=== PATIENT | male | born 1950 | race Caucasian/White ===

== ENCOUNTER 2016-10-23 23:42 | Observation (INO) | payer BC ==
[2016-10-24] MEDS ORDERED: niCARdipine HCL 2.5 MG/ML AMP IVPB ONE (00:07)
[2016-10-24] MEDS ORDERED: SODIUM CHLORIDE 0.9% 1000ML 1,000 ML ONE (00:11)
[2016-10-24] MEDS ORDERED: SODIUM CHLORIDE 0.9% (FLUSH) 10 ML SYG IV PRN ×2 (00:11→01:28)
[2016-10-24] MEDS ORDERED: SODIUM CHLORIDE 0.9% 1000ML 1,000 ML IVS PRN (00:12)
[2016-10-24] MEDS ORDERED: diltiaZEM HCL CD 180 MG CAP PO ONE (00:36)
--- NOTE | 2016-10-24 00:45 | ED.PDOC ---
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 He started having an irregular , rapid pulse about an hour [employer]. The pulse went back to normal for about 15 minutes, but then returned to being rapid and irregular, so he came in. He denies any chest pain, although he says it feels funny. He has a history of PVCs for which he took a beta indira, however he is no longer on it. He has had a very stressful week as his mother last week and he has had to travel back and forth to arrange for her , etc. Otherwise, he has been in his normal state of health. Timing/Duration: 1 hour Severity: moderate Improving Factors: nothing Worsening Factors: nothing Associated Symptoms: denies symptoms Allergies/Adverse Reactions: Allergies Aspirin Allergy (Unknown, Verified 10/24/16 00:06) Home Medications: Ambulatory Orders NK [NK] 10/24/16 Review of Systems - Review of Systems Constitutional: States: other - fatigue EENTM: States: nose congestion Respiratory: States: no symptoms reported Cardiology: States: palpitations Gastrointestinal/Abdominal: States: other - heartburn Genitourinary: States: no symptoms reported Musculoskeletal: States: no symptoms reported Skin: States: no symptoms reported Neurological: States: numbness - Left hand Endocrine: States: no symptoms reported Hematologic/Lymphatic: States: no symptoms reported All other Systems: Reviewed and Negative Past Medical History (General) - Patient Medical History Hx Diabetes: No - Vaccination History Hx Influenza Vaccination: Yes Immunizations Up to Date: Yes Family Medical History - Family History Mother Family History: Unknown Living Status: Physical Exam - Physical Exam General Appearance: Alert, No apparent distress Eye Exam: bilateral normal Ears, Nose, Throat: hearing grossly normal, normal ENT inspection Neck: full range of motion, normal inspection Respiratory: lungs clear, normal breath sounds, no respiratory distress, no accessory muscle use Cardiovascular/Chest: no murmur, irregularly irregular - rapid Peripheral Pulses: radial,right: 2+, radial,left: 2+ Gastrointestinal/Abdominal: normal bowel sounds, non tender, soft, no organomegaly, no pulsatile mass Extremity: normal range of motion, normal inspection, no pedal edema, no calf tenderness Neurologic: alert, normal mood/affect, oriented x 3 Skin Exam: normal color, warm/dry Progress - Progress Progress: 10/24/16 00:47 Patient responded very well to Cardizem 30 mg IV which is 0.25 mg/kg. His pulse reduced to below 100, although he was still in afib. Because he wanted to stay in [place] rather than be transferred somewhere, I called Dr. Aguilar and he gladly accepted Patient. 10/24/16 01:17 Patient has been given some oral diltiazem and Lovenox, and we will start some magnesium since his is at the lower end of normal. - Results/Orders Results/Orders: 10/23/16 10/24/16 10/24/16 23:59 00:26 00:42 Temperature 98.9 F Pulse Rate 148 H 94 H Pulse Rate [ 152 H 92 H monitor] Respiratory 16 16 Rate Blood Pressure 158/115 156/72 [Left Arm] O2 Sat by Pulse 99 97 97 Oximetry 10/24/16 00:49 Temperature Pulse Rate 82 Pulse Rate [ 80 monitor] Respiratory 16 Rate Blood Pressure 150/72 [Left Arm] O2 Sat by Pulse 97 Oximetry 10/24/16 00:00 THYROID STIMULATING HORMONE Stat THYROXINE (T4) Stat 10/24/16 00:11 IV Care:Saline Lock per Protoc QSHIFT Telemetry .ONCE Sodium Chloride 0.9% (Flush) [Saline Flush Syringe] 10 ml IV PRN PRN EKG Stat Pulse Ox Stat 10/24/16 00:12 Sodium Chloride 0.9% 1000ML [Ns 1000 ml] 1,000 ml IVS .KVO Pulse Oximetry Assessment DAILY 10/24/16 00:45 EKG STAT 10/24/16 01:11 Magnesium Sulfate Premix 2Gm 2 gm Premix Bag 1 bag IVPB ONCE Laboratory Results WBC 6.7 K/mm3 (4.8-10.8) 10/24/16 00:00 RBC 5.00 M/mm3 (4.70-6.10) 10/24/16 00:00 Hgb 16.1 gm/dL (14.0-18.0) 10/24/16 00:00 Hct 47.0 % (42.0-52.0) 10/24/16 00:00 MCV 94.0 fl (80.0-94.0) 10/24/16 00:00 MCH 32.2 pg (27.0-31.0) H 10/24/16 00:00 MCHC 34.3 g/dL (33.0-37.0) 10/24/16 00:00 RDW 13.4 % (11.5-14.5) 10/24/16 00:00 Plt Count 217 K/mm3 (130-400) 10/24/16 00:00 MPV 7.7 fl (7.40-10.4) 10/24/16 00:00 Absolute Neuts (auto) 2.50 K/uL (1.8-6.8) 10/24/16 00:00 Absolute Lymphs (auto) 3.20 K/uL (1.0-3.4) 10/24/16 00:00 Absolute Monos (auto) 0.70 K/uL (0.2-0.8) 10/24/16 00:00 Absolute Eos (auto) 0.40 K/uL (0.0-0.4) 10/24/16 00:00 Absolute Basos (auto) 0.00 K/uL (0.0-0.1) 10/24/16 00:00 Neutrophils % 36.7 % (42.0-78.0) L 10/24/16 00:00 Lymphocytes % 47.4 % (20.0-50.0) 10/24/16 00:00 Monocytes % 9.8 % (2.0-9.0) H 10/24/16 00:00 Eosinophils % 5.4 % (1.0-5.0) H 10/24/16 00:00 Basophils % 0.7 % (0.0-2.0) 10/24/16 00:00 PT 13.4 SECONDS (9.4-12.5) H 10/24/16 00:00 INR 1.190 10/24/16 00:00 PTT (SP) 36.5 SECONDS (25.1-36.5) 10/24/16 00:00 D-Dimer, Quantitative 271 ng/mL (0-230) H* 10/24/16 00:00 Sodium 138 mmol/L (135-145) 10/24/16 00:00 Potassium 3.5 mmol/L (3.6-5.0) L 10/24/16 00:00 Chloride 104 mmol/L (101-111) 10/24/16 00:00 Carbon Dioxide 25 mmol/L (21-31) 10/24/16 00:00 Anion Gap 12.5 (12-18) 10/24/16 00:00 BUN 12 mg/dL (7-18) 10/24/16 00:00 Creatinine 0.75 mg/dL (0.6-1.3) 10/24/16 00:00 BUN/Creatinine Ratio 16.0 (10-20) 10/24/16 00:00 Random Glucose 150 mg/dL (70-105) H 10/24/16 00:00 Serum Osmolality 278.3 mOsm/L (275-295) 10/24/16 00:00 Calcium 10.0 mg/dL (8.4-10.2) 10/24/16 00:00 Magnesium 2.0 mg/dL (1.8-2.5) 10/24/16 00:00 Creatine Kinase 261 IU/L (38-174) H* 10/24/16 00:00 CK-MB (CK-2) 5.4 ng/mL (0.0-4.4) H* 10/24/16 00:00 CK-MB (CK-2) % 2.07 % (0.0-3.5) 10/24/16 00:00 Troponin I < 0.02 ng/mL (0.01-0.05) 10/24/16 00:00 B-Natriuretic Peptide 121.0 pg/ml (0-100) H 10/24/16 00:00 Thyroxine (T4) 9.73 ug/dL (6.09-12.23) 10/24/16 00:00 - EKG/XRAY/CT EKG: Atrial, Fibrillation, RVR - 154 bpm, nonspecific ST T wave Chg Comments: NML axis, No comparison--Afib with RVR XRAY: chest Xray Comments: No acute process - Additional EKG/XRAY/Consults EKG #2: Atrial, Fibrillation - 99 bpm, no ST T wave changes, Changed from - EKG #1--rate controlled Comments: NML axis, PVC--Afib with PVC Departure - Departure Clinical Impression: Atrial fibrillation with rapid ventricular response Disposition: Admit Patient Condition: Fair Home Medications: Ambulatory Orders NK [NK] 10/24/16 Decision To Admit - Decistion To Admit Decision to Admit Reason: Medical Nature Decision to Admit Date: 10/24/16 Decision to Admit Time: 01:00
--- NOTE | 2016-10-24 00:53 | RAD ---
EXAM: Chest,1 View CLINICAL INDICATION: 66-year-old male with A. fib. TECHNIQUE: Single view, AP portable chest was obtained. COMPARISON: None. FINDINGS: Unremarkable cardiac and mediastinal silhouette. Heart size is normal. Lungs are clear without focal opacity, pneumothorax or pleural effusions. The visualized bones are within normal limits. IMPRESSION: No acute cardiopulmonary abnormalities. Electronically signed by: Nancy Tenorio MD 10/24/2016 12:52 AM ZONING ADMINISTRATOR
[2016-10-24] MEDS ORDERED: MAGNESIUM SULFATE PREMIX 2GM 2 GM in PREMIX BAG 1 BAG IVPB ONE (01:11)
[2016-10-24] MEDS ORDERED: ENOXAPARIN SODIUM 40 MG/0.4 ML SYG SUBCU ONE (01:13)
[2016-10-24] MEDS ORDERED: MAGNESIUM SULFATE PREMIX 2GM 50 ML IVPB ONE (01:17)
[2016-10-24] MEDS ORDERED: MAGNESIUM HYDROXIDE 30 ML UD PO PRN (01:28)
[2016-10-24] MEDS ORDERED: ACETAMINOPHEN 325 MG TAB PO PRN (01:28)
[2016-10-24] MEDS ORDERED: KCL 40MEQ/NS 1,000 ML IVS PRN (01:28)
[2016-10-24] MEDS ORDERED: IV SET AND CAP CHANGE INJ INJ SCH (01:30)
[2016-10-24] MEDS ORDERED: POTASSIUM CHLORIDE 10 MEQ TAB PO ONE (01:45)
[2016-10-24] MEDS ORDERED: diltiaZEM HCL TAB 30 MG TAB PO ONE (05:02)
[2016-10-24] MEDS ORDERED: OMEPRAZOLE CAP 20 MG CAP PO SCH (06:30)
[2016-10-24] MEDS: POTASSIUM CHLORIDE 10 MEQ TAB PO SCH ×2 (07:55→09:16)
[2016-10-24] MEDS ORDERED: diltiaZEM HCL CD 180 MG CAP PO SCH (09:00)
[2016-10-24] MEDS ORDERED: SODIUM CHLORIDE 0.9% 10 ML VIAL IV PRN (09:02)
--- NOTE | 2016-10-24 10:17 | SSS ---
DATE OF ADMISSION: 10/24/16 DATE OF DISCHARGE: 10/24/16 DISCHARGE DIAGNOSIS: 1. Acute atrial fibrillation, initial episode with rapid ventricular response, requiring medication to assist with conversion to normal sinus rhythm. 2. Hypokalemia, improved with supplementation. 3. Hypomagnesemia, improved with supplementation. 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 He has some abnormal sensations on his right trapezius with some mild shortness of breath as well as some achiness in the chest, but no full chest pain or radiation to the extremities. No diaphoresis or lightheadedness. He had an episode similar to this that lasted for about 15 minutes about one week previously. He sees Dr. Staton as his primary care physician. He has been drinking about one to three cups of coffee per day. His mother has recently and this has been stressful for him and may have contributed a little bit for the tendency for the rapid atrial rhythm. Otherwise, he is on no specific home medications. He was placed in the hospital after Cardizem slowed his rate parenterally in the Emergency Room and he was started on oral therapy Cardizem 180 mg CD. PAST MEDICAL HISTORY: Generally unremarkable. He has had PVCs in the past and was evaluated by the cardiology clinic at [facility] in [place], [place], with treadmill, EKG, etc., and everything was good as of last summer. PAST SURGICAL HISTORY: 1. Tonsillectomy as a young person. 2. Dupuytren's contractures of his hands recently. CURRENT MEDICATIONS: ALLERGIES: FAMILY HISTORY: Positive for atrial fibrillation, carotid artery disease, and diabetes mellitus. SOCIAL HISTORY: He works as a professional dentist in town. No smoking or alcohol consumption. REVIEW OF SYSTEMS: CONSTITUTIONAL: Some weight gain recently. No significant fever or chills. HEENT: Hearing and vision within normal limits. LUNGS: No significant cough or shortness of breath, but he did have an upper respiratory infection about ten days ago. CARDIOVASCULAR: Irregular pulse with some abnormal sensations in the upper chest attended with a rapid pulse. Negative history of previous myocardial infarctions. GASTROINTESTINAL: No nausea, vomiting, diarrhea, or blood in the stools. GENITOURINARY: No dysuria. EXTREMITIES: Fully function. No significant edema state. NEUROLOGIC: No headaches or weakness. PHYSICAL EXAMINATION: VITAL SIGNS: Afebrile. Pulse initially 155 and irregular. Blood pressure 156/ 87, decreasing down to 129/80. Pulse oximetry 97% on room air. Weight 112 kg. GENERAL: The patient is awake, alert, oriented and communicative. He was feeling much improved after his rate returned to a normal sinus rhythm. His was also present to assist with the history. HEENT: Within normal limits. LUNGS: Clear. HEART: Tones rapid and irregular initially, converting to a normal sinus rhythm which was regular in the 80s. No significant gallops or murmurs noted. No carotid bruits. ABDOMEN: Soft. No organomegaly, masses, or tenderness. EXTREMITIES: Well formed. No pedal edema. NEUROLOGIC: No focal neurological deficits. The patient is awake, alert, oriented and communicative. LABORATORY: White count 6,700, hemoglobin 16.1, INR 1.19, D-dimer 271. Chemistries show potassium 3.5 and supplementation increased it to 4.2. BUN normal at 11. Creatinine 0.75, glucose 130 on discharge. His CK was 261 on admission, down to 177 on discharge. Troponin 0. Beta natriuretic peptide 121. TSH normal at 2. Urinalysis did show some ketones positive, no cultures obtained. Chest x-ray within normal limits. EKG did show rapid atrial fibrillation converting to normal sinus rhythm by 5 o'clock the morning of discharge. Copies of EKG and lab are sent home with the patient. HOSPITAL COURSE: The patient was feeling much improved the morning of discharge and will be sent home with close followup. PLAN: Close followup with Dr. Staton within the next seven to ten days. An appointment is being made with Dr. Barton in the cardiology clinic at [facility] on 11/01/16. They will call his cell phone number to give him the time of the appointment. Dr. Barton's office number is . He will continue on baby aspirin daily and Cardizem CD 180 mg q.a.m. daily. He will be seen by the nephrology nurse a week from Monday with echocardiogram to be scheduled. If the rapid, irregular rhythm returns, he is to contact Dr. Staton and Dr. Barton or Dr. Padilla to be available for cardiology intervention on a more acute basis. The patient is sent home with copies of lab and x-rays for nephrology nurse review. #[id number] [facility]
[2016-10-24 10:22] VITALS: BP 119/65; TEMP 98.3; O2SAT 98
[2016-10-24] MEDS ORDERED: ENOXAPARIN SODIUM 40 MG/0.4 ML SYG SUBCU SCH (21:00)
== END 2016-10-24 10:37 | disposition home or self-care (01) ==
LOC: ER 23:42 → MS 10-24 01:31
PROVIDERS: ADMIT Emergency Medicine; ATTEND Emergency Medicine
DX: I48.91 Unspecified atrial fibrillation (principal); E87.6 Hypokalemia; E83.42 Hypomagnesemia; I49.3 Ventricular premature depolarization; R06.02 Shortness of breath; Z88.6 Allergy status to analgesic agent; Z82.49 Family history of ischemic heart disease and other diseases of the circulatory system; Z83.3 Family history of diabetes mellitus

== ENCOUNTER 2016-10-31 07:24 | Emergency (ER) | payer BC ==
--- NOTE | 2016-10-31 07:51 | ED.PDOC ---
History of Present Illness - General Chief Complaint: Cardiovascular Problem Stated Complaint: Elevated, irregular pulse Time Seen by Provider: 10/31/16 07:47 Source: patient, RN notes reviewed, Vital Signs reviewed, family Exam Limitations: no limitations - History of Present Illness Initial Comments: Patient is a 66 y/o male who was seen last week in the ED for new onset afib. Patient was admitted, and by the next morning, he had returned to sinus rhythm and was discharged. He has an appointment with the steel box toe inserter tomorrow. This AM at 0500, Patient started feeling his heart race again. This is the first time he has felt it since being discharged. He checked his pulse, and it was in the low 100s. He took his Cardizem CD 180 mg at about 0515. However, his pulse continued to increase. He called his PCP, Dr. Staton, who told him to come to the ED. Patient denies any chest pain, diaphoresis, shortness of breath or nausea. Timing/Duration: 1-3 hours Severity: moderate Improving Factors: nothing Worsening Factors: nothing Associated Symptoms: denies symptoms Allergies/Adverse Reactions: Allergies Aspirin Adverse Reaction (Mild, Verified 10/31/16 07:41) Other High dose ASA caused itching after several doses Home Medications: Ambulatory Orders Aspirin [Aspirin EC Low Dose] 81 mg PO QAM #100 tab 10/24/16 Potassium Chloride Tab [Micro-K] 10 meq PO DAILYBK #30 tab 10/24/16 diltiaZEM HCL CD [Cardizem CD] 180 mg PO QAM #30 cap 10/24/16 Diltiazem HCl 30 mg PO Q6H PRN #6 tab 10/31/16 Past Medical History (General) - Patient Medical History Hx Seizures: No Hx Stroke: No Hx Asthma: No Hx of COPD: No Hx Cardiac Disorders: Yes - Hx PVC's, A fib Hx Congestive Heart Failure: No Hx Pacemaker: No Hx Hypertension: No Hx Diabetes: No Hx MRSA: No - Vaccination History Hx Influenza Vaccination: Yes - 2016 Hx Pneumococcal Vaccination: No - Social History Hx Tobacco Use: No Hx Alcohol Use: No Hx Substance Use: No Hx Physical Abuse: No Hx Emotional Abuse: No Family Medical History - Family History Mother Family History: Unknown Living Status: Physical Exam - Physical Exam General Appearance: Alert, Comfortable, No apparent distress Ears, Nose, Throat: hearing grossly normal, normal ENT inspection Progress - Progress Progress: 10/31/16 08:50 Patient has an appointment with the steel box toe inserter tomorrow. He would like to go home with the understanding that he is to return if he should have any chest pain or if the short-acting cardizem that I give him is not effective. I spoke with Dr. Barton, Cardiology, who is in agreement with this plan. 10/31/16 09:57 - Results/Orders Results/Orders: 10/31/16 10/31/16 10/31/16 07:39 07:59 08:25 Temperature 98.2 F Pulse Rate 133 H 96 H 94 H Pulse Rate [ 133 H 96 H 94 H Apical] Respiratory 22 22 22 Rate Blood Pressure 161/114 138/82 149/74 [Left Arm] O2 Sat by Pulse 97 97 96 Oximetry 10/31/16 10/31/16 08:54 09:31 Temperature 98.2 F 98.2 F Pulse Rate 95 H 100 H Pulse Rate [ 95 H 100 H Apical] Respiratory 22 22 Rate Blood Pressure 142/70 144/75 [Left Arm] O2 Sat by Pulse 94 L 96 Oximetry 10/31/16 07:35 Telemetry .ONCE EKG Assessment ONCE EKG Stat Pulse Ox Stat Pulse Oximetry Assessment DAILY Chest,1 View [RAD] Stat 10/31/16 08:22 EKG Assessment ONCE 10/31/16 08:30 EKG STAT Laboratory Results WBC 6.3 K/mm3 (4.8-10.8) 10/31/16 07:30 RBC 5.22 M/mm3 (4.70-6.10) 10/31/16 07:30 Hgb 16.6 gm/dL (14.0-18.0) 10/31/16 07:30 Hct 49.3 % (42.0-52.0) 10/31/16 07:30 MCV 94.4 fl (80.0-94.0) H 10/31/16 07:30 MCH 31.9 pg (27.0-31.0) H 10/31/16 07:30 MCHC 33.7 g/dL (33.0-37.0) 10/31/16 07:30 RDW 13.6 % (11.5-14.5) 10/31/16 07:30 Plt Count 195 K/mm3 (130-400) 10/31/16 07:30 MPV 7.9 fl (7.40-10.4) 10/31/16 07:30 Absolute Neuts (auto) 2.70 K/uL (1.8-6.8) 10/31/16 07:30 Absolute Lymphs (auto) 2.50 K/uL (1.0-3.4) 10/31/16 07:30 Absolute Monos (auto) 0.80 K/uL (0.2-0.8) 10/31/16 07:30 Absolute Eos (auto) 0.30 K/uL (0.0-0.4) 10/31/16 07:30 Absolute Basos (auto) 0.10 K/uL (0.0-0.1) 10/31/16 07:30 Neutrophils % 42.5 % (42.0-78.0) 10/31/16 07:30 Lymphocytes % 40.0 % (20.0-50.0) 10/31/16 07:30 Monocytes % 12.1 % (2.0-9.0) H 10/31/16 07:30 Eosinophils % 4.6 % (1.0-5.0) 10/31/16 07:30 Basophils % 0.8 % (0.0-2.0) 10/31/16 07:30 PT 12.7 SECONDS (9.4-12.5) H 10/31/16 07:30 INR 1.130 10/31/16 07:30 PTT (SP) 36.3 SECONDS (25.1-36.5) 10/31/16 07:30 Sodium 140 mmol/L (135-145) 10/31/16 07:30 Potassium 3.8 mmol/L (3.6-5.0) 10/31/16 07:30 Chloride 103 mmol/L (101-111) 10/31/16 07:30 Carbon Dioxide 26 mmol/L (21-31) 10/31/16 07:30 Anion Gap 14.8 (12-18) 10/31/16 07:30 BUN 19 mg/dL (7-18) H 10/31/16 07:30 Creatinine 0.93 mg/dL (0.6-1.3) 10/31/16 07:30 BUN/Creatinine Ratio 20.4 (10-20) H 10/31/16 07:30 Random Glucose 118 mg/dL (70-105) H 10/31/16 07:30 Serum Osmolality 282.7 mOsm/L (275-295) 10/31/16 07:30 Calcium 10.0 mg/dL (8.4-10.2) 10/31/16 07:30 Magnesium 2.0 mg/dL (1.8-2.5) 10/31/16 07:30 Creatine Kinase 109 IU/L (38-174) 10/31/16 07:30 CK-MB (CK-2) 2.9 ng/mL (0.0-4.4) 10/31/16 07:30 CK-MB (CK-2) % Not Reportable 10/31/16 07:30 Troponin I < 0.02 ng/mL (0.01-0.05) 10/31/16 07:30 B-Natriuretic Peptide 51.8 pg/ml (0-100) 10/31/16 07:30 - EKG/XRAY/CT EKG: Atrial, Fibrillation - 145 bpm, nonspecific ST T wave Chg, Changed from - Compared to EKGs of 10/24/16, #1 and #2. Changes in rate and rhythm. Comments: [place] NML; Irreg intervals; Occ. P-waves; Afib. EKG interpreted by me. - Additional EKG/XRAY/Consults EKG #2: Atrial, Fibrillation - 109, Changed from - Previous EKG--rate decreeased. Comments: NML axis; Irreg. intervals; afib with RVR Departure - Departure Clinical Impression: Atrial fibrillation with rapid ventricular response Time of Disposition: 09:55 Disposition: Discharge to Home or Self Care Condition: Fair Departure Forms: ED Discharge - Pt. Copy, Patient Portal Self Enrollment Instructions: Atrial Fibrillation, DI for Atrial Fibrillation Diet: resume usual diet Referrals: Eddy Staton MD [Primary Care Provider] - 1-2 Weeks Ed Barton MD [Referring] - 1-2 Days Prescriptions: Diltiazem HCl 30 mg PO Q6H PRN #6 tab PRN Reason: Atrial fibrillation - rapid Home Medications: Ambulatory Orders Aspirin [Aspirin EC Low Dose] 81 mg PO QAM #100 tab 10/24/16 Potassium Chloride Tab [Micro-K] 10 meq PO DAILYBK #30 tab 10/24/16 diltiaZEM HCL CD [Cardizem CD] 180 mg PO QAM #30 cap 10/24/16 Diltiazem HCl 30 mg PO Q6H PRN #6 tab 10/31/16 Additional Instructions: Follow up if heart rate does not decrease within 45 minutes or for any chest pain, shortness of breath.
[2016-10-31] MEDS ORDERED: ENOXAPARIN SODIUM 40 MG/0.4 ML SYG SUBCU ONE (08:40)
[2016-10-31 10:15] VITALS: BP 146/82; TEMP 98; O2SAT 97
== END 2016-10-31 10:10 | disposition home or self-care (01) ==
LOC: ER 07:24
DX: I48.91 Unspecified atrial fibrillation (principal); Z88.6 Allergy status to analgesic agent; Z79.899 Other long term (current) drug therapy; Z79.82 Long term (current) use of aspirin

== ENCOUNTER → 2018-08-01 | Outpatient (CLI) | payer MEDICARE, OTHER | LOC: GMAH 10:41 | PROVIDERS: ATTEND Family Medicine | DX: I10 Essential (primary) hypertension (principal) ==

== ENCOUNTER 2018-08-05 19:58 | Emergency (ER) | payer MEDICARE, OTHER ==
[2018-08-05] MEDS ORDERED: KETOROLAC TROMETHAMINE INJ 30 MG/ML VIAL IV ONE (20:14)
[2018-08-05] MEDS ORDERED: ONDANSETRON INJ 4 MG/2 ML VIAL IV ONE (20:14)
[2018-08-05] MEDS ORDERED: TAMSULOSIN 0.4 MG CAP PO ONE (20:14)
[2018-08-05] MEDS ORDERED: SODIUM CHLORIDE 0.9% 1000ML 1,000 ML IVS ONE ×2 (20:14→21:34)
--- NOTE | 2018-08-05 20:21 | ED.PDOC ---
History of Present Illness - General Chief Complaint: Abdominal Pain Stated Complaint: right flank pain since Monday Time Seen by Provider: 08/05/18 20:13 Source: patient Exam Limitations: no limitations - History of Present Illness Initial Comments: patient comes in today for hematuria and renal colic. Patient stated that on he noticed that he was urinating blood. Patient is on a blood thinner for past atrial fibrillation and so he stopped the medication, Eloquis, and called his normal doctor. After stopping the medication the following day the urine went to dark brown and subsequently cleared. Patient states he was feeling okay until Monday when he started noticing a little bit of renal colic. He had right-sided back pain that radiated around to the right lower quadrant. Patient stated that on Monday he called his doctor and they decided that if his pain was not severe he would have a CAT scan for possible kidney stone on Monday. He was given a prescription for ciprofloxacin to take if he started running fever. Patient states today the pain has progressed to a 7 out of 10 and so he decided to go ahead and come in. He hasn't a past had kidney stones. Today patient is making urine, it is clear, without purulence. Patient's had no fever or chills. Patient has had abdominal bloating and the pain seems to be in the right flank area and radiating down toward his right groin. Patient has no diarrhea, constipation, or blood in the stools. 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 Patient undergoing [facility] abnormal heart rhythms since after the surgery. Patient today has noted a couple episode of palpitations but currently has no chest pain. Patient does not smoke, very rarely drinks, and does not take illicit substances. Timing/Duration: other - since Quality: moderate, sharpness Onset Location: right flank Radiation: groin Activites at Onset: none Improving Factors: nothing Worsening Factors: nothing Associated Symptoms: nausea/vomiting, other - hematuria, bloating, renal colic Allergies/Adverse Reactions: Allergies NO KNOWN ALLERGY Allergy (Verified 08/05/18 20:30) Home Medications: Ambulatory Orders Apixaban [Eliquis] 5 mg PO BID 08/05/18 Metoprolol Tartrate 25 mg PO BID 08/05/18 Sotalol HCl 40 mg PO BID 08/05/18 Review of Systems - Review of Systems Constitutional: States: no symptoms reported. Denies: chills, fever, weakness EENTM: States: no symptoms reported. Denies: eye pain, ear pain, nose congestion, throat pain Respiratory: States: no symptoms reported. Denies: cough, short of breath Cardiology: States: palpitations. Denies: chest pain, edema Gastrointestinal/Abdominal: States: abdominal pain, nausea. Denies: diarrhea, vomiting Genitourinary: States: see HPI, hematuria, pain Musculoskeletal: States: back pain Past Medical History (General) - Patient Medical History Hx Seizures: No Hx Stroke: No Hx Asthma: No Hx of COPD: No Hx Cardiac Disorders: Yes - Hx PVC's, A fib Hx Congestive Heart Failure: No Hx Pacemaker: No Hx Hypertension: No Hx Diabetes: No Hx MRSA: No - Vaccination History Hx Influenza Vaccination: Yes - 2016 Hx Pneumococcal Vaccination: No - Social History Hx Tobacco Use: No Hx Alcohol Use: No Hx Substance Use: No Hx Physical Abuse: No Hx Emotional Abuse: No Family Medical History - Family History Mother Family History: Unknown Living Status: Physical Exam - Physical Exam General Appearance: Alert, No apparent distress Eyes, Ears, Nose, Throat Exam: PERRL/EOMI, normal ENT inspection, TMs normal Neck: non-tender Cardiovascular/Respiratory: regular rate, rhythm, no M/R/G, normal peripheral pulses, no JVD, normal breath sounds, no respiratory distress Gastrointestinal/Abdominal: normal bowel sounds, soft, other - TTP RLQ and suprapubic area no CVA tenderness Back Exam: normal inspection Neurologic: alert, oriented x 3 Progress - Progress Progress: 08/05/18 21:[address] with obstructing 5 mm stone. Called for transfer. Spoke to Aneta Yanez and did not feel like transfer was needed at this time. Discussed care and will see if we can adequately control pain here. Patient still has not made urine. Will give 2nd bag of IVF. If UA shows infection they will accept transfer. Patient understands and we will monitor. 08/05/18 22:55 patient is hurting a little more and Demerol was ordered. UA was clear and so plan is to follow up as outpatient, monitor his renal function and if continues to hurt recheck CT for progress of stone. Patient has Tylenol #3 for pain at home that he has not used yet but is available. - Results/Orders Results/Orders: 08/05/18 20:14 Sodium Chloride 0.9% 1000ML [Ns 1000 ml] 1,000 ml IVS ONCE URINALYSIS Stat Laboratory Results WBC 7.7 K/mm3 (4.8-10.8) 08/05/18 20:30 RBC 4.87 M/mm3 (4.70-6.10) 08/05/18 20:30 Hgb 16.2 gm/dL (14.0-18.0) 08/05/18 20:30 Hct 47.8 % (42.0-52.0) 08/05/18 20:30 MCV 98.1 fl (80.0-94.0) H 08/05/18 20:30 MCH 33.3 pg (27.0-31.0) H 08/05/18 20:30 MCHC 33.9 g/dL (33.0-37.0) 08/05/18 20:30 RDW 13.4 % (11.5-14.5) 08/05/18 20:30 Plt Count 200 K/mm3 (130-400) 08/05/18 20:30 MPV 7.7 fl (7.40-10.4) 08/05/18 20:30 Absolute Neuts (auto) 5.50 K/uL (1.8-6.8) 08/05/18 20:30 Absolute Lymphs (auto) 1.30 K/uL (1.0-3.4) 08/05/18 20:30 Absolute Monos (auto) 0.60 K/uL (0.2-0.8) 08/05/18 20:30 Absolute Eos (auto) 0.30 K/uL (0.0-0.4) 08/05/18 20:30 Absolute Basos (auto) 0.00 K/uL (0.0-0.1) 08/05/18 20:30 Neutrophils % 71.2 % (42.0-78.0) 08/05/18 20:30 Lymphocytes % 16.8 % (20.0-50.0) L 08/05/18 20:30 Monocytes % 8.2 % (2.0-9.0) 08/05/18 20:30 Eosinophils % 3.4 % (1.0-5.0) 08/05/18 20:30 Basophils % 0.4 % (0.0-2.0) 08/05/18 20:30 Sodium 135 mmol/L (135-145) 08/05/18 20:30 Potassium 4.2 mmol/L (3.6-5.0) 08/05/18 20:30 Chloride 104 mmol/L (101-111) 08/05/18 20:30 Carbon Dioxide 24 mmol/L (21-31) 08/05/18 20:30 Anion Gap 11.2 (12-18) L 08/05/18 20:30 BUN 21 mg/dL (7-18) H 08/05/18 20:30 Creatinine 0.91 mg/dL (0.6-1.3) 08/05/18 20:30 BUN/Creatinine Ratio 23.1 (10-20) H 08/05/18 20:30 Random Glucose 114 mg/dL (70-105) H 08/05/18 20:30 Serum Osmolality 273.9 mOsm/L (275-295) L 08/05/18 20:30 Calcium 9.6 mg/dL (8.4-10.2) 08/05/18 20:30 Total Bilirubin 0.8 mg/dL (0.2-1.0) 08/05/18 20:30 AST 24 IU/L (10-42) 08/05/18 20:30 ALT 18 IU/L (10-60) 08/05/18 20:30 Alkaline Phosphatase 55 IU/L (42-121) 08/05/18 20:30 Serum Total Protein 7.0 gm/dL (6.4-8.2) 08/05/18 20:30 Albumin 4.0 g/dl (3.2-5.5) 08/05/18 20:30 Globulin 3.0 gm/dL (2.3-3.5) 08/05/18 20:30 Albumin/Globulin Ratio 1.3 (1.1-1.9) 08/05/18 20:30 Patient Name: BONNY SANDOVAL Gender: Male Date of : 1950 Referring Physician: MIROSLAVA DYE Organization: [facility] Accession Number: [id number] Requested Date: August 05, 2018 20:14 Report Status: Final Requested Procedure: 1 Procedure Description: Abdoment/Pelvis w/o Contrast Modality: CT Findings Reporting MD: Emma Garcia Fellow MD: Not available Dictation Time: Medical Administrative Assistant: Not available Shactor Helper Date: EXAM DESCRIPTION: Abdoment/Pelvis w/o Contrast CLINICAL HISTORY: 68 years Male R CVA pain with hematuria hx stones COMPARISON: None. TECHNIQUE: Contiguous axial images obtained through the abdomen and pelvis without IV contrast. Reformatted images obtained. This exam was performed according to our department optimization program which includes automated exposure control, adjustment of the mA and/or kv according to patient size and/or use of iterative reconstruction technique. FINDINGS: The lung bases are clear. There is a small hiatal hernia. The unenhanced liver is unremarkable. The spleen and pancreas appear unremarkable. No adrenal masses. There are nonobstructing renal calculi bilaterally. There is perinephric edema on the right with right hydronephrosis. There is an obstructing distal ureteral stone on the right measuring 5 mm. Nonspecific perinephric stranding is present on the left, likely chronic in nature. The gallbladder is mildly contracted with numerous gallstones noted. No aneurysmal dilatation of the aorta. No bowel obstruction. Unremarkable appendix. Calcification in the prostate. No free pelvic fluid. IMPRESSION: [facility] [address] [place] [address], [address] [place] [address] T [phone] F [phone] [email or web address] Report exported on Aug 05, 2018 21:05:13 -0600 - Page 2 of 2 Right hydronephrosis with an obstructing 5 mm distal stone Bilateral nephrolithiasis Hiatal hernia Cholelithiasis Laboratory Last Values WBC 7.7 K/mm3 (4.8-10.8) 08/05/18 20:30 RBC 4.87 M/mm3 (4.70-6.10) 08/05/18 20:30 Hgb 16.2 gm/dL (14.0-18.0) 08/05/18 20:30 Hct 47.8 % (42.0-52.0) 08/05/18 20:30 MCV 98.1 fl (80.0-94.0) H 08/05/18 20:30 MCH 33.3 pg (27.0-31.0) H 08/05/18 20:30 MCHC 33.9 g/dL (33.0-37.0) 08/05/18 20:30 RDW 13.4 % (11.5-14.5) 08/05/18 20:30 Plt Count 200 K/mm3 (130-400) 08/05/18 20:30 MPV 7.7 fl (7.40-10.4) 08/05/18 20:30 Absolute Neuts (auto) 5.50 K/uL (1.8-6.8) 08/05/18 20:30 Absolute Lymphs (auto) 1.30 K/uL (1.0-3.4) 08/05/18 20:30 Absolute Monos (auto) 0.60 K/uL (0.2-0.8) 08/05/18 20:30 Absolute Eos (auto) 0.30 K/uL (0.0-0.4) 08/05/18 20:30 Absolute Basos (auto) 0.00 K/uL (0.0-0.1) 08/05/18 20:30 Neutrophils % 71.2 % (42.0-78.0) 08/05/18 20:30 Lymphocytes % 16.8 % (20.0-50.0) L 08/05/18 20:30 Monocytes % 8.2 % (2.0-9.0) 08/05/18 20:30 Eosinophils % 3.4 % (1.0-5.0) 08/05/18 20:30 Basophils % 0.4 % (0.0-2.0) 08/05/18 20:30 Sodium 135 mmol/L (135-145) 08/05/18 20:30 Potassium 4.2 mmol/L (3.6-5.0) 08/05/18 20:30 Chloride 104 mmol/L (101-111) 08/05/18 20:30 Carbon Dioxide 24 mmol/L (21-31) 08/05/18 20:30 Anion Gap 11.2 (12-18) L 08/05/18 20:30 BUN 21 mg/dL (7-18) H 08/05/18 20:30 Creatinine 0.91 mg/dL (0.6-1.3) 08/05/18 20:30 BUN/Creatinine Ratio 23.1 (10-20) H 08/05/18 20:30 Random Glucose 114 mg/dL (70-105) H 08/05/18 20:30 Serum Osmolality 273.9 mOsm/L (275-295) L 08/05/18 20:30 Calcium 9.6 mg/dL (8.4-10.2) 08/05/18 20:30 Total Bilirubin 0.8 mg/dL (0.2-1.0) 08/05/18 20:30 AST 24 IU/L (10-42) 08/05/18 20:30 ALT 18 IU/L (10-60) 08/05/18 20:30 Alkaline Phosphatase 55 IU/L (42-121) 08/05/18 20:30 Serum Total Protein 7.0 gm/dL (6.4-8.2) 08/05/18 20:30 Albumin 4.0 g/dl (3.2-5.5) 08/05/18 20:30 Globulin 3.0 gm/dL (2.3-3.5) 08/05/18 20:30 Albumin/Globulin Ratio 1.3 (1.1-1.9) 08/05/18 20:30 Urine Color Yellow (Yellow) 08/05/18 22:10 Urine Appearance Sl cloudy (Clear) 08/05/18 22:10 Urine pH 6.0 (4.5-7.8) 08/05/18 22:10 Ur Specific [place] 1.010 (1.005-1.030) 08/05/18 22:10 Urine Protein Negative mg/dL 08/05/18 22:10 Urine Glucose (UA) Negative mg/dL (Negative) 08/05/18 22:10 Urine Ketones Negative mg/dL (NEGATIVE) 08/05/18 22:10 Urine Blood Large (Negative) H 08/05/18 22:10 Urine Nitrite Negative 08/05/18 22:10 Urine Bilirubin Negative (NEGATIVE) 08/05/18 22:10 Urine Urobilinogen 0.2 mg/dL (0.2-1.0) 08/05/18 22:10 Ur Leukocyte Esterase Negative (Negative) 08/05/18 22:10 Urine RBC 20-30 /hpf H 08/05/18 22:10 Urine WBC 0 /hpf 08/05/18 22:10 Ur Epithelial Cells 1-3 /hpf 08/05/18 22:10 Urine Bacteria Rare 08/05/18 22:10 Departure - Departure Clinical Impression: Nephrolithiasis Disposition: Discharge to Home or Self Care Condition: Good Departure Forms: ED Discharge - Pt. Copy, Patient Portal Self Enrollment Instructions: DI for Abdominal Pain-Adult Diet: regular diet Referrals: Eddy Staton MD [Primary Care Provider] - 1-2 Weeks Home Medications: Ambulatory Orders Apixaban [Eliquis] 5 mg PO BID 08/05/18 Metoprolol Tartrate 25 mg PO BID 08/05/18 Sotalol HCl 40 mg PO BID 08/05/18 Additional Instructions: return to ER for temp >100.5, increase in pain, intractable emesis. Follow up in 1-2 days with PCP to recheck kidney function and decide on follow up imaging vs Urology consult.
--- NOTE | 2018-08-05 21:02 | CT ---
EXAM DESCRIPTION: Abdoment/Pelvis w/o Contrast CLINICAL HISTORY: 68 years Male R CVA pain with hematuria hx stones COMPARISON: None. TECHNIQUE: Contiguous axial images obtained through the abdomen and pelvis without IV contrast. Reformatted images obtained. This exam was performed according to our department optimization program which includes automated exposure control, adjustment of the mA and/or kv according to patient size and/or use of iterative reconstruction technique. FINDINGS: The lung bases are clear. There is a small hiatal hernia. The unenhanced liver is unremarkable. The spleen and pancreas appear unremarkable. No adrenal masses. There are nonobstructing renal calculi bilaterally. There is perinephric edema on the right with right hydronephrosis. There is an obstructing distal ureteral stone on the right measuring 5 mm. Nonspecific perinephric stranding is present on the left, likely chronic in nature. The gallbladder is mildly contracted with numerous gallstones noted. No aneurysmal dilatation of the aorta. No bowel obstruction. Unremarkable appendix. Calcification in the prostate. No free pelvic fluid. IMPRESSION: Right hydronephrosis with an obstructing 5 mm distal stone Bilateral nephrolithiasis Hiatal hernia Cholelithiasis Electronically signed by: Emma Garcia MD 08/05/2018 9:01 PM ASSOCIATE SALES REPRESENTATIVE
[2018-08-05] MEDS ORDERED: MEPERIDINE HCL 50 MG/ML VIAL IV ONE (22:43)
[2018-08-05 22:46] VITALS: O2SAT 97
[2018-08-05 23:35] VITALS: BP 133/77; TEMP 97.8
== END 2018-08-05 23:38 | disposition home or self-care (01) ==
LOC: ER 19:58
DX: N13.2 Hydronephrosis with renal and ureteral calculous obstruction (principal); K80.20 Calculus of gallbladder without cholecystitis without obstruction; K44.9 Diaphragmatic hernia without obstruction or gangrene; I48.91 Unspecified atrial fibrillation
CPT/HCPCS: 74176; 80053; 81001; 85025; J1885; J2175; J2405; J7030

== ENCOUNTER → 2019-01-29 | Outpatient (CLI) | payer MEDICARE, OTHER ==
--- NOTE | 2019-01-30 09:27 | CT ---
EXAM DESCRIPTION: Abdoment/Pelvis w/o Contrast CLINICAL HISTORY: 68 years Male, UTI COMPARISON: 05 August 2018 TECHNIQUE: Transaxial images were obtained without intravenous or oral contrast media. Sagittal and coronal reconstruction was performed.This exam was performed according to our departmental dose-optimization program, which includes automated exposure control, adjustment of the mA and/or kV according to patient size and/or use of iterative reconstruction technique. FINDINGS: The lung bases are clear. The liver and spleen are unremarkable. No biliary ductal dilatation is observed. Gallstones are observed in the gallbladder. No adrenal masses are detected. The pancreas is normal in appearance. Imaging of the kidneys reveals bilateral 2 to 3 mm diameter calculi. There are nonobstructing. No solid mass or cyst is detected. A stone is seen to partially obstruct the proximal left ureter. It measures 5.2 mm in diameter. Calcific atherosclerotic changes observed in the abdominal aorta without evidence of aneurysmal dilatation. The appendix is identified and is normal in appearance. No inguinal region abnormality is seen. No free fluid is detected. Mild degenerative changes are observed in the lumbar spine. Mild prostatic hypertrophy and calcification is observed. No inguinal region abnormality is seen. IMPRESSION: 1. Bilateral renal calculi are observed. 2. A 5.2 mm diameter stone is seen to obstruct the proximal left ureter. 3. Cholelithiasis Electronically signed by: Braeden Muniz MD 01/30/2019 9:25 AM CDT
== END ==
LOC: GMAH 10:55
PROVIDERS: ATTEND Family Medicine
DX: N39.0 Urinary tract infection, site not specified (principal); N20.2 Calculus of kidney with calculus of ureter; K80.20 Calculus of gallbladder without cholecystitis without obstruction

== ENCOUNTER → 2019-03-06 | Outpatient (CLI) | payer MEDICARE, OTHER | LOC: LAB.O 14:55 | PROVIDERS: ATTEND Urology | DX: N20.0 Calculus of kidney (principal) ==

== ENCOUNTER → 2019-10-03 | Outpatient (CLI) | payer MEDICARE, OTHER | LOC: SL 20:01 | PROVIDERS: ATTEND Family Medicine | DX: G47.9 Sleep disorder, unspecified (principal); Z86.73 Personal history of transient ischemic attack (TIA), and cerebral infarction without residual deficits; I10 Essential (primary) hypertension; I48.91 Unspecified atrial fibrillation ==